=== PATIENT | female | born 1995 | race African-American/Black ===

== ENCOUNTER 2020-12-07 09:06 | Emergency (ER) | payer SELFPAY ==
[~2020-12-07] VITALS: Ht 162.6 cm; Wt 99.0 kg
[2020-12-07 09:08] VITALS: BP 118/65
[2020-12-07] MEDS ORDERED: HYDR10TA34 PO (09:12)
[2020-12-07] MEDS ORDERED: HYDR50SY PO (09:12)
== END 2020-12-07 12:17 | disposition left against medical advice (07) ==
LOC: ER 09:42
DX: R10.12 Left upper quadrant pain (principal); Z53.21 Procedure and treatment not carried out due to patient leaving prior to being seen by health care provider
CPT/HCPCS: 93005